=== PATIENT | female | born 1930 | race Caucasian/White ===

== ENCOUNTER 2016-10-28 11:32 | Emergency (ER) | payer OTHER ==
[~2016-10-28 11:32] MED LIST: ALPRAZOLAM0.5 MG PO; ASPIRIN325 MG PO; BUPROPION HCL100 MG PO; METFORMIN HCL750 MG PO; NIFEDIPINE ER90 MG PO; SYNTHROID50 MCG PO; ZOCOR80 MG PO
[2016-10-28 13:11] LABS: HEMOGLOBIN 11.3 gm/dl (12.3-15.3); RED BLOOD COUNT 4.15 M/UL (4.00-5.10); WHITE BLOOD COUNT 8.7 K/UL (4.5-11.0)
[2016-10-28 13:32] LABS: BUN/CREATININE RATIO 18 (0-10)
== END 2016-10-28 14:05 | disposition home or self-care (01) ==
LOC: ER1 11:32
PROVIDERS: Emergency Medicine
DX: R04.2 Hemoptysis (principal); C34.90 Malignant neoplasm of unspecified part of unspecified bronchus or lung; Z88.5 Allergy status to narcotic agent; Z88.0 Allergy status to penicillin
CPT/HCPCS: 36415; 71010; 80053; 85025; 85610; 85730; 93005; 99283